=== PATIENT | female | born 1950 | race Caucasian/White ===

== ENCOUNTER → 2018-02-14 11:51 | Outpatient (CLI) | payer MEDICARE, OTHER, SELFPAY ==
--- NOTE | 2018-02-14 | DI.MG.S_ITS ---
BILATERAL DIGITAL SCREENING MAMMOGRAM 3D/2D WITH CAD: 02/14/2018 CLINICAL: Routine screening. Comparison is made to exams dated: 02/01/2017 mammogram, 01/14/2016 mammogram, and 01/03/2015 mammogram - [facility]. The tissue of both breasts is heterogeneously dense. This may lower the sensitivity of mammography. Current study was also evaluated with a Computer Aided Detection (CAD) system. There are clustered calcifications in the left breast middle depth superior region seen on the mediolateral oblique view only. No other significant masses, calcifications, or other findings are seen in either breast. IMPRESSION: INCOMPLETE: NEEDS ADDITIONAL IMAGING EVALUATION The clustered calcifications in the left breast are indeterminate. Spot magnification views are recommended. This exam was interpreted at Station ID: [id number]. NOTE: For mammograms, a report in lay terms will be sent to the patient. Approximately 15% of breast malignancies will not be visualized mammographically. In the management of a palpable breast mass, a negative mammogram must not discourage biopsy of a clinically suspicious lesion. Electronically Signed By: Erin sargent/deejay:02/14/2018 15:06:14 letter sent: Additional Imaging Needed ACR BI-RADS Category 0: Incomplete 3340F
== END ==
PROVIDERS: PCP Physician Assistant; Visit Provider Physician Assistant
DX: Z12.31 Encounter for screening mammogram for malignant neoplasm of breast (principal)
CPT/HCPCS: 77063; 77067

== ENCOUNTER → 2018-02-17 09:17 | Outpatient (CLI) | payer MEDICARE, OTHER, SELFPAY ==
--- NOTE | 2018-02-17 | DI.MG.S_ITS ---
UNILATERAL LEFT DIGITAL DIAGNOSTIC MAMMOGRAM 3D/2D WITH ADDITIONAL VIEWS: 02/17/2018 CLINICAL: Additional evaluation requested from prior study. Comparison is made to exams dated: 02/14/2018 mammogram, 02/01/2017 mammogram, and 01/14/2016 mammogram - [facility]. The tissue of the left breast is heterogeneously dense. This may lower the sensitivity of mammography. The calcifications in the left breast middle depth superior region seen on the mediolateral oblique view only are seen in additional views. No other significant masses or calcifications are seen in the breast. IMPRESSION: BENIGN The calcifications in the left breast are consistent with vascular calcifications and are benign. There is no mammographic evidence of malignancy. A 1 year screening mammogram is recommended. This exam was interpreted at Station ID: [id number]. NOTE: For mammograms, a report in lay terms will be sent to the patient. Approximately 15% of breast malignancies will not be visualized mammographically. In the management of a palpable breast mass, a negative mammogram must not discourage biopsy of a clinically suspicious lesion. Electronically Signed By: Erin Cardoza M.D. lk/:02/17/2018 09:47:34 letter sent: Normal Exam ACR BI-RADS Category 2: Benign Finding(s) 3342F
== END ==
PROVIDERS: PCP Physician Assistant; Visit Provider Physician Assistant
DX: R92.1 Mammographic calcification found on diagnostic imaging of breast (principal)
CPT/HCPCS: 77065; G0279

== ENCOUNTER → 2018-07-14 09:36 | Outpatient (CLI) | payer MEDICARE, OTHER, SELFPAY ==
[2018-07-14 10:22] LABS: Add Manual Diff / Slide Review NO; Basophils Percent Auto 0.6 % (0-2); Eosinophils Percent Auto 1.7 % (2-4); Hematocrit 42.3 % (36-46); Hemoglobin 14.1 g/dL (12.0-16.0); Lymphocytes Percent Auto 28.5 % (25-40); Mean Corpuscular HGB Conc 33.2 % (30-36); Mean Corpuscular Hemoglobin 29.5 PG (26-34); Mean Corpuscular Volume 88.8 fL (80-100); Monocytes Percent Auto 8.1 % (3-14); Neutrophils Absolute Auto 3900 /uL (3000-5900); Neutrophils Percent Auto 61.1 % (50-75); Platelet Count 199 X10^3/uL (150-400); Red Blood Cell Count 4.77 X10^6/uL (4.0-5.2); Red Cell Distribution Width 13.8 % (11.6-14.8); White Blood Cell Count 6.4 X10^3/uL (4.5-11.0)
[2018-07-14 10:52] LABS: Alanine Aminotransferase 31 IU/L (9-52); Albumin 4.5 g/dL (3.5-5.0); Albumin Globulin Ratio 1.5 (1.0-2.8); Alkaline Phosphatase 58 U/L (38-126); Aspartate Aminotransferase 36 IU/L (14-36); BUN Creatinine Ratio 26.7 (6-22); Bilirubin Total 0.4 mg/dL (0.2-1.3); Blood Urea Nitrogen 16 mg/dL (7-17); Calcium 9.2 mg/dL (8.4-10.2); Carbon Dioxide 29 mmol/L (22-32); Chloride 100 mmol/L (98-107); Cholesterol 200 mg/dL (140-199); Estimated Glomerular Filt Rate > 60.0 mL/min (>60); Globulin 3.1 g/dL (1.7-4.1); Glucose 84 mg/dL (80-110); HDL Cholesterol 65 mg/dL (40-60); HEMOLYSIS < 15 (0-50); LDL Cholesterol Calculated 124 mg/dL (<100); Potassium 4.1 mmol/L (3.4-5.1); Sodium 142 mmol/L (137-145); Total Protein 7.6 g/dL (6.3-8.2); Triglycerides 57 mg/dL (35-150)
== END ==
PROVIDERS: PCP Physician Assistant; Visit Provider Physician Assistant
DX: E78.00 Pure hypercholesterolemia, unspecified (principal); I10 Essential (primary) hypertension
CPT/HCPCS: 36415; 80053; 80061; 85025

== ENCOUNTER → 2019-03-13 10:53 | Outpatient (CLI) | payer MEDICARE, OTHER, SELFPAY ==
--- NOTE | 2019-03-13 | DI.MG.S_ITS ---
BILATERAL DIGITAL SCREENING MAMMOGRAM 3D/2D WITH CAD: 03/13/2019 CLINICAL: Routine screening. Comparison is made to exams dated: 02/17/2018 mammogram, 02/14/2018 mammogram, 02/01/2017 mammogram, and 01/14/2016 mammogram - [facility]. The tissue of both breasts is heterogeneously dense. This may lower the sensitivity of mammography. Current study was also evaluated with a Computer Aided Detection (CAD) system. There is possible architectural distortion in the right breast middle depth superior region seen on the mediolateral oblique view only. There are bilateral vascular calcifications. No other significant masses, calcifications, or other findings are seen in either breast. IMPRESSION: INCOMPLETE: NEEDS ADDITIONAL IMAGING EVALUATION There is possible architectural distortion in the right breast middle depth superior region seen on the mediolateral oblique view only is indeterminate. Additional views with possible ultrasound are recommended. This exam was interpreted at Station ID: [id number]. NOTE: For mammograms, a report in lay terms will be sent to the patient. Approximately 15% of breast malignancies will not be visualized mammographically. In the management of a palpable breast mass, a negative mammogram must not discourage biopsy of a clinically suspicious lesion. Electronically Signed By: Devon Broderick M.D. ecl/:03/13/2019 17:40:44 letter sent: Additional Imaging Needed ACR BI-RADS Category 0: Incomplete 3340F
== END ==
PROVIDERS: PCP Physician Assistant; Visit Provider Physician Assistant
DX: Z12.31 Encounter for screening mammogram for malignant neoplasm of breast (principal); R92.8 Other abnormal and inconclusive findings on diagnostic imaging of breast
CPT/HCPCS: 77063; 77067

== ENCOUNTER → 2019-03-28 14:01 | Outpatient (CLI) | payer MEDICARE, OTHER, SELFPAY ==
--- NOTE | 2019-03-28 | DI.MG.S_ITS ---
UNILATERAL RIGHT DIGITAL DIAGNOSTIC MAMMOGRAM 3D/2D WITH ADDITIONAL VIEWS: 03/28/2019 CLINICAL: Additional evaluation requested from prior study. Comparison is made to exams dated: 03/13/2019 mammogram, 02/14/2018 mammogram, and 02/01/2017 mammogram - [facility]. The tissue of right breast is heterogeneously dense. This may lower the sensitivity of mammography. The possible benign architectural distortion in the right breast middle depth superior region seen on the mediolateral oblique view only is not reproduced and presumably represented superimposed breast tissue. This is consistent with summation artifact. No other significant masses or calcifications are seen in the breast. IMPRESSION: The previously described possible asymmetry disperses with additional views and is consistent with summation artifact. There is no mammographic evidence of malignancy. A 1 year screening mammogram is recommended. This exam was interpreted at Station ID: [id number]. NOTE: For mammograms, a report in lay terms will be sent to the patient. Approximately 15% of breast malignancies will not be visualized mammographically. In the management of a palpable breast mass, a negative mammogram must not discourage biopsy of a clinically suspicious lesion. Electronically Signed By: Paul Rojas M.D. aty/:03/28/2019 14:58:22 letter sent: Normal Exam ACR BI-RADS Category 2: Benign Finding(s) 3342F
== END ==
PROVIDERS: PCP Physician Assistant; Visit Provider Physician Assistant
DX: R92.8 Other abnormal and inconclusive findings on diagnostic imaging of breast (principal)
CPT/HCPCS: 77065; G0279

== ENCOUNTER → 2020-03-18 09:30 | Outpatient (CLI) | payer MEDICARE, OTHER, SELFPAY ==
--- NOTE | 2020-03-18 | DI.RAD.S_ITS ---
PROCEDURE: XR DEXA AXIAL SKELETON INDICATIONS: SCREENING COMPARISON: None. FINDINGS: This blank DEXA report has been sent in error by the PACS system. The correct and complete report will be forthcoming in 1-2 days. Thank you for your patience and understanding. Dictated by: Elizabet Fernando MD, PhD on 03/18/2020 at 17:45 Approved by: Elizabet Fernando MD, PhD on 03/18/2020 at 17:45
--- NOTE | 2020-03-18 | DI.MG.S_ITS ---
BILATERAL DIGITAL SCREENING MAMMOGRAM 3D/2D WITH CAD: 03/18/2020 CLINICAL: Routine screening. Comparison is made to exams dated: 03/28/2019 mammogram, 03/13/2019 mammogram, 02/17/2018 mammogram, 02/14/2018 mammogram, and 02/01/2017 mammogram - [facility]. The tissue of both breasts is heterogeneously dense. This may lower the sensitivity of mammography. Current study was also evaluated with a Computer Aided Detection (CAD) system. There is a new 0.5 cm oval high density asymmetry in the right breast middle depth superior region seen on the mediolateral oblique view only 7.6 cm from the nipple. No other significant masses, calcifications, or other findings are seen in either breast. IMPRESSION: INCOMPLETE: NEEDS ADDITIONAL IMAGING EVALUATION New 0.5 cm oval high density asymmetry in the right breast diagnostic mammogram and ultrasound is recommended. This exam was interpreted at Station ID: [id number]. NOTE: For mammograms, a report in lay terms will be sent to the patient. Approximately 15% of breast malignancies will not be visualized mammographically. In the management of a palpable breast mass, a negative mammogram must not discourage biopsy of a clinically suspicious lesion. Electronically Signed By: Lb Metcalf M.D. jr/:03/18/2020 16:26:40 letter sent: Additional Imaging Needed ACR BI-RADS Category 0: Incomplete 3340F
[2020-03-18 10:16] LABS: Add Manual Diff / Slide Review NO; Basophils Absolute Auto 100 /uL (0-100); Basophils Percent Auto 0.6 % (0-2); Eosinophils Absolute Auto 100 /uL (0-450); Eosinophils Percent Auto 1.4 % (2-4); Hematocrit 39.6 % (36-46); Hemoglobin 13.5 g/dL (12.0-16.0); Lymphocytes Absolute Auto 1600 /uL (1100-4500); Lymphocytes Percent Auto 18.8 % (25-40); Mean Corpuscular HGB Conc 34.2 % (30-36); Mean Corpuscular Hemoglobin 30.6 PG (26-34); Mean Corpuscular Volume 89.5 fL (80-100); Monocytes Absolute Auto 600 /uL (0-900); Monocytes Percent Auto 6.9 % (3-14); Neutrophils Absolute Auto 6000 /uL (1500-7000); Neutrophils Percent Auto 72.3 % (50-75); Platelet Count 197 X10^3/uL (150-400); Red Blood Cell Count 4.42 X10^6/uL (4.0-5.2); Red Cell Distribution Width 13.7 % (11.6-14.8); White Blood Cell Count 8.2 X10^3/uL (4.5-11.0)
[2020-03-18 10:42] LABS: Alanine Aminotransferase 21 IU/L (<35); Albumin 4.3 g/dL (3.5-5.0); Albumin Globulin Ratio 1.5 (1.0-2.8); Alkaline Phosphatase 77 U/L (38-126); Aspartate Aminotransferase 33 IU/L (14-36); BUN Creatinine Ratio 30.8 (6-22); Bilirubin Total 0.5 mg/dL (0.2-1.3); Blood Urea Nitrogen 20 mg/dL (7-17); Calcium 9.7 mg/dL (8.4-10.2); Carbon Dioxide 23 mmol/L (22-32); Chloride 103 mmol/L (98-107); Cholesterol 183 mg/dL (140-199); Estimated Glomerular Filt Rate > 60.0 mL/min (>60); Globulin 2.8 g/dL (1.7-4.1); Glucose 83 mg/dL (80-110); HDL Cholesterol 59 mg/dL (40-60); HEMOLYSIS < 15 (0-50); LDL Cholesterol Calculated 111 mg/dL (<100); Potassium 4.5 mmol/L (3.4-5.1); Sodium 137 mmol/L (137-145); Total Protein 7.1 g/dL (6.3-8.2); Triglycerides 64 mg/dL (35-150)
[2020-03-18 10:57] LABS: Vitamin D 25 Hydroxy (D3) 60.9 ng/mL (30.0-100.0)
== END ==
PROVIDERS: PCP Physician Assistant; Referring Provider Physician Assistant; Visit Provider Physician Assistant
DX: Z12.31 Encounter for screening mammogram for malignant neoplasm of breast (principal); M81.0 Age-related osteoporosis without current pathological fracture; Z78.0 Asymptomatic menopausal state; I10 Essential (primary) hypertension; E78.00 Pure hypercholesterolemia, unspecified
CPT/HCPCS: 36415; 77063; 77067; 77080; 80053; 80061; 82306; 85025

== ENCOUNTER → 2020-04-10 09:18 | Outpatient (CLI) | payer MEDICARE, OTHER, SELFPAY ==
--- NOTE | 2020-04-10 09:36 | DI.MG.S_ITS ---
Patient Name: DAVID BONILLA date: 1950 Sex: F Attending Physician: Ana Lilia Indications: Date: 04/10/2020 09:29 At the request of: PAMELA AWAD Procedure: MM special view RT UNILATERAL RIGHT DIGITAL DIAGNOSTIC MAMMOGRAM 3D/2D WITH ADDITIONAL VIEWS: 04/10/2020 CLINICAL: Additional evaluation requested from prior study. Comparison is made to exams dated: 03/18/2020 mammogram, 03/28/2019 mammogram, 03/13/2019 mammogram, and 02/14/2018 mammogram - [facility]. The tissue of right breast is heterogeneously dense. This may lower the sensitivity of mammography. There is a 5 mm oval mass with an obscured margin in the right breast at 9 o'clock middle depth. This is seen in additional views. No other significant masses or calcifications are seen in the breast. IMPRESSION: INCOMPLETE: NEEDS ADDITIONAL IMAGING EVALUATION The 5 mm oval mass in the right breast is indeterminate. An ultrasound is recommended. This exam was interpreted at Station ID: [id number]. NOTE: For mammograms, a report in lay terms will be sent to the patient. Approximately 15% of breast malignancies will not be visualized mammographically. In the management of a palpable breast mass, a negative mammogram must not discourage biopsy of a clinically suspicious lesion. SUMMARY: Targeted ultrasound is recommended for further evaluation and will be scheduled immediately following this exam. Electronically Signed By: Aashish Grande M.D. Continued Report - Page 2 of 2 Patient Name: DAVID BONILLA date: 1950 Sex: F Attending Physician: Ana Lilia Indications: Date: 04/10/2020 09:29 At the request of: PAMELA AWAD Procedure: MM special view RT
--- NOTE | 2020-04-10 10:23 | DI.US.S_ITS ---
Patient Name: DAVID BONILLA date: 1950 Sex: F Attending Physician: Ana Lilia Indications: Date: 04/10/2020 10:24 At the request of: PAMELA AWAD Procedure: US breast RT limited LIMITED ULTRASOUND OF RIGHT BREAST AND AXILLA: 04/10/2020 CLINICAL: Patient returns today to evaluate asymmetry in the right breast. Comparison is made to exams dated: 04/10/2020 mammogram, 03/18/2020 mammogram, 03/28/2019 mammogram, 03/13/2019 mammogram, and 02/14/2018 mammogram - [facility]. Color flow ultrasound of the right breast 9 o'clock, and axilla regions was performed. Brothers scale images of the real-time examination were reviewed. There is a 0.5 cm x 0.3 cm x 0.4 cm round mass with an indistinct and microlobulated margin in the right breast at 9 o'clock middle depth 7 cm from the nipple. This round mass is hypoechoic with posterior acoustic shadowing. This correlates with mammography findings. No significant abnormalities were seen sonographically in the right axilla. IMPRESSION: SUSPICIOUS OF MALIGNANCY The 0.5 cm x 0.3 cm x 0.4 cm round mass in the right breast is at a moderate suspicion for malignancy. An ultrasound guided biopsy is recommended. The findings and recommendations were discussed with the patient in person by Dr. Webber at the time of the exam. This exam was interpreted at Station ID: [id number]. Electronically Signed By: Aashish alexander/deejay:04/10/2020 11:34:57 letter sent: Biopsy Required Ultrasound BI-RADS: 4b Moderate suspicion of malignancy
== END ==
PROVIDERS: PCP Physician Assistant; Referring Provider Physician Assistant; Visit Provider Physician Assistant
DX: R92.8 Other abnormal and inconclusive findings on diagnostic imaging of breast (principal); N63.15 Unspecified lump in the right breast, overlapping quadrants
CPT/HCPCS: 76642; 77065; G0279

== ENCOUNTER → 2020-04-29 13:55 | Outpatient (CLI) | payer MEDICARE, OTHER, SELFPAY ==
--- NOTE | 2020-04-29 | PATH_ITS ---
[facility] Accession Number: [id number] . 01 Material submitted: . breast - RIGHT BREAST 9:00 BIOPSY WITH CLIP . 01 Clinical history: . RIGHT BREAST MASS . 01 Diagnosis: A. Right Breast, 9 o'clock, Biopsy With Clip: Portions of cyst wall with associated hyalinization and stromal fibrosis and proteinaceous secretions. Background with scant breast tissue with focal usual ductal hyperplasia and apocrine metaplasia. Negative for atypia, carcinoma in situ, and malignancy. MRV 05/01/2020 1324 Local . 01 Comment: Clinico-radiographic correlation is necessary. . 01 Electronically signed: . Esha Lo MD, Pathologist NPI- [id number] . 01 Gross description: . Received one formalin-filled container labeled with the patient's name and designated right breast 9 o'clock biopsy with clip. Samples received with plastic filter in container, sample loose in container. The specimen consists of multiple fragments of yellow-lentz soft tissue and blood, which measure 3.5 x 2.0 x 0.5 cm in aggregate. The specimen is filtered and entirely submitted in two cassettes. No collection date or time per container. Possible collection date and time per requisition 04/29/2020 at 1549. Possible total fixation time approximately 30 hours. ([facility]:[id number]) /[facility] 04/30/2020 1847 Local . 01 Pathologist provided ICD-10: N60.19 . 01 CPT . 499693 [facility]formed at: [facility] [address] [place] [address] [id number] MD Sree Ba MD Phone: [phone]
--- NOTE | 2020-04-29 | DI.US.S_ITS ---
ULTRASOUND GUIDED BIOPSY RIGHT BREAST USING VACUUM DEVICE WITH MARKING DEVICE INSERTED AND POST DIGITAL MAMMOGRAPHIC IMAGIN04/29/2020 CLINICAL: Right breast ultrasound biopsy, clip placement imaging. PATIENT CONSENT: Risks (minor bleeding, infection, vasovagal reaction and repeat procedure), benefits and alternatives were explained to the patient and written informed consent was obtained. Correlation is made to exams dated: 04/29/2020 mammogram, 04/10/2020 ultrasound, and 04/10/2020 mammogram - [facility]. An ultrasound guided biopsy using real-time ultrasound was performed for the circumscribed round mass measuring 0.3 cm located in the right breast at 9 o'clock middle depth 7 cm from the nipple. The skin was prepped in the usual manner. Local anesthetic was administered to the access site. A skin sachin was made in the breast. The abnormality was approached from the lateral aspect. A 13 gauge biopsy needle was placed adjacent to the abnormality under ultrasound guidance. Once the needle was documented to be in the correct location, four specimens were obtained using the Mammotome biopsy system. A Vision clip was inserted into the biopsy cavity. Post procedure digital mammographic imaging was obtained. The specimens were sent to the laboratory for pathological analysis. IMPRESSION: ULTRASOUND GUIDED BIOPSY BENIGN Ultrasound guided biopsy of the mass in the right breast at 9 o'clock middle depth was successful. Pathology indicates Portions of cyst wall with associated hyalinization and stromal fibrosis and proteinaceous secretions. Background with win scant breast tissue with focal usual ductal hyperplasia and apocrine metaplasia. Negative for atypia, carcinoma in situ, and malignancy. Pathology results are concordant with imaging findings. Recommend returning to screening mammogram. This exam was interpreted at Station ID: [id number]. Elizabet Kelly M.D. [facility],[place]/:05/06/2020 08:48:49
--- NOTE | 2020-04-29 | DI.MG.S_ITS ---
UNILATERAL RIGHT DIGITAL DIAGNOSTIC MAMMOGRAM POST-NEEDLE BIOPSY: 04/29/2020 CLINICAL: Right breast Mass. Comparison is made to exams dated: 04/10/2020 mammogram, 03/18/2020 mammogram, 03/28/2019 mammogram, and 03/13/2019 mammogram - [facility]. The tissue of right breast is heterogeneously dense. This may lower the sensitivity of mammography. There is a marker clip in the appropriate position in the right breast at 9 o'clock middle depth. This marker clip placement is at the biopsy site. IMPRESSION: POST PROCEDURE MAMMOGRAM FOR MARKER PLACEMENT There was a successful marker clip placement in the right breast middle depth. This exam was interpreted at Station ID: [id number]. NOTE: For mammograms, a report in lay terms will be sent to the patient. Approximately 15% of breast malignancies will not be visualized mammographically. In the management of a palpable breast mass, a negative mammogram must not discourage biopsy of a clinically suspicious lesion. Electronically Signed By: Elizabet vallecillo/deejay:04/30/2020 10:44:14 ACR BI-RADS Category Post-procedure mammogram for marker placement
== END ==
PROVIDERS: PCP Physician Assistant; Referring Provider Physician Assistant; Visit Provider Physician Assistant
DX: N60.01 Solitary cyst of right breast (principal); N60.81 Other benign mammary dysplasias of right breast; N60.31 Fibrosclerosis of right breast
CPT/HCPCS: 19083; 77065

== ENCOUNTER → 2020-10-20 12:46 | Outpatient (CLI) | payer MEDICARE, OTHER, SELFPAY ==
[2020-10-20] MEDS: COVID-19 VACC, Ad26(JANSSEN)/PF 0.5 ML IM (13:00)
== END ==
PROVIDERS: PCP Physician Assistant; Visit Provider Internal Medicine
DX: Z23 Encounter for immunization (principal)
CPT/HCPCS: 0031A; 91303

== ENCOUNTER → 2021-04-04 08:49 | Outpatient (CLI) | payer MEDICARE, OTHER, SELFPAY ==
--- NOTE | 2021-04-04 | DI.MG.S_ITS ---
BILATERAL DIGITAL SCREENING MAMMOGRAM 3D/2D WITH CAD: 04/04/2021 CLINICAL: Routine screening. Comparison is made to exams dated: 03/18/2020 mammogram, 03/13/2019 mammogram, and 02/14/2018 mammogram - [facility]. The tissue of both breasts is heterogeneously dense. This may lower the sensitivity of mammography. Current study was also evaluated with a Computer Aided Detection (CAD) system. No significant masses, calcifications, or other findings are seen in either breast. There has been no significant interval change. IMPRESSION: NEGATIVE There is no mammographic evidence of malignancy. A 1 year screening mammogram is recommended. This exam was interpreted at Station ID: [id number]. NOTE: For mammograms, a report in lay terms will be sent to the patient. Approximately 15% of breast malignancies will not be visualized mammographically. In the management of a palpable breast mass, a negative mammogram must not discourage biopsy of a clinically suspicious lesion. Electronically Signed By: Lb Metcalf M.D., jr/deejay:04/06/2021 09:07:38 letter sent: Normal Exam ACR BI-RADS Category 1: Negative 3341F
== END ==
PROVIDERS: PCP Internal Medicine; Referring Provider Internal Medicine; Visit Provider Internal Medicine
DX: Z12.31 Encounter for screening mammogram for malignant neoplasm of breast (principal)
CPT/HCPCS: 77063; 77067

== ENCOUNTER 2022-04-07 11:33 | Emergency (ER) | payer MEDICARE, OTHER, SELFPAY ==
[2022-04-07] VITALS (17 sets, daily range): BP systolic 112–149; BP diastolic 64–97; PULSE 66–91; RESP 12–49; TEMP 36.7; O2SAT 89–100; BMI 24.2
--- NOTE | 2022-04-07 11:48 | ED_ITS ---
HPI - Syncope General Chief Complaint: Dizziness Stated Complaint: syncope Time Seen by Provider: 04/07/22 11:41 Source: patient and EMS Mode of arrival: EMS Limitations: no limitations History of Present Illness HPI narrative: The patient is a 72-year-old history of hypertension presents today after syncopal episode. She states this morning she noticed some right-sided back pain she thought it was similar to an ulcer she had 20 years ago. 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 She fell and hit her head. EMS arrived and found a blood pressure of 86/60. Not tachycardic she is on Coreg. She denies any nausea or vomiting. She has no abdominal pain or chest pain. She is not sure what happened. She says that she ate injuring this morning however it was not right right-sided back pain which made her little suspicious. She has not had any bleeding. Related Data Home Medications Medication Instructions Recorded Confirmed sertraline 50 mg tablet (Zoloft) 50 mg PO QDAY ##0 07/26/16 Allergies Allergy/AdvReac Type Severity Reaction Status Date / Time Penicillins Allergy Unknown Verified 04/07/22 11:41 Sulfa (Sulfonamide Allergy Unknown Verified 04/07/22 11:41 Antibiotics) Review of Systems Review of Systems Narrative: GENERAL: Denies chills, fatigue, malaise, fever, sweats, travel HEENT: Denies sinus pain, ear pain, sore throat, difficulty swallowing, neck pain RESPIRATORY: Denies dyspnea, cough, wheezing, hemoptysis, sputum. CARDIOVASCULAR: See HPI GASTROINTESTINAL: Denies nausea, vomiting, abdominal pain, diarrhea, constipation, melena. : Denies dysuria, frequency, incontinence, hematuria, urinary retention, flank pain. MUSCULOSKELETAL: Denies weakness, joint pain, or bony pain SKIN: No rash, no erythema, no pruritus NEUROLOGIC: Denies weakness, dizziness, headache, numbness, change in speech, confusion PSYCHIATRIC: No concerning psychosocial issues. 12 point review of systems is negative except for those stated above and HPI Exam Initial Vital Signs Initial Vital Signs: Vital Signs Temperature 98.0 F 04/07/22 11:35 Pulse Rate 66 04/07/22 11:35 Respiratory Rate 18 04/07/22 11:35 Blood Pressure 112/67 04/07/22 11:35 Pulse Oximetry 97 04/07/22 11:35 Oxygen Delivery Method 04/07/22 11:35 GENERAL: Alert pleasant 72-year-old female and in no acute distress. HEENT: Head atraumatic,EOMI, pupils reactive, face symmetric, moist mucous membranes CARDIOVASCULAR: Regular rate and rhythm without murmurs, rubs or gallops. RESPIRATORY: Breath sounds equal bilaterally, no wheezes rales or rhonchi. ABDOMEN: Soft, nontender. Normoactive bowel sounds all 4 quadrants. No gua rding or rebound. EXTREMITIES: Normal range of motion, no clubbing or edema. Neurovascularly intact NEUROLOGICAL: Alert and oriented x4.Normal gait and speech. Cranial nerves II through XII grossly intact. Good [id number], good nifa-iz-[id number], strength equal bilaterally, no dysarthria or aphasia, sensation in tact to soft touch bilaterally, no visual changes, no facial droop SKIN: Warm, dry, no laceration, no petechiae, no rashes or lesions. Course Orders Ordered: ED Orders 04/07/22 11:39 COVID19 -Nasal RAPID/Pre-Proc Stat 04/07/22 11:41 EKG-12 Lead Stat 04/07/22 11:52 CT angio chest abdomen pelvis Stat CT head/brain wo con Stat 04/07/22 11:55 Complete Blood Count AUTO DIFF Stat Comprehensive Metabolic Panel Stat Lactate (Lactic Acid) Stat Lipase Stat Magnesium Stat Troponin & CK Cardiac Panel Stat 04/07/22 13:55 US abdomen limited Stat 04/07/22 14:50 MRCP [MR abdomen wo con] Stat Discontinued Medications Meclizine HCl (Meclizine Hcl 12.5 Mg Tablet) 25 mg PO NOW ONE Stop: 04/07/22 13:08 Last Admin: 04/07/22 13:39 Dose: 25 mg Documented By: ADK Vital Signs Vital signs: Vital Signs - 8 hr 04/07/22 11:35 04/07/22 11:38 04/07/22 11:38 Temperature 98.0 F Pulse Rate 66 68 Respiratory Rate 18 Blood Pressure 112/67 112/67 Pulse Oximetry 97 97 Oxygen Delivery Method Room Air 04/07/22 11:41 04/07/22 11:41 04/07/22 12:00 Temperature Pulse Rate 66 Respiratory Rate 22 Blood Pressure 116/64 117/72 Pulse Oximetry 96 Oxygen Delivery Method 04/07/22 12:00 08/31/22 12:20 04/07/22 12:20 Temperature Pulse Rate 71 77 Respiratory Rate 16 12 Blood Pressure 127/73 Pulse Oximetry 95 97 Oxygen Delivery Method 04/07/22 12:30 04/07/22 12:30 04/07/22 13:00 Temperature Pulse Rate 81 Respiratory Rate 18 Blood Pressure 130/79 119/73 Pulse Oximetry 100 Oxygen Delivery Method 04/07/22 13:00 04/07/22 13:07 04/07/22 13:07 Temperature Pulse Rate 80 82 Respiratory Rate 26 H 19 Blood Pressure 143/81 H Pulse Oximetry 99 96 Oxygen Delivery Method 04/07/22 13:30 04/07/22 13:30 04/07/22 14:02 Temperature Pulse Rate 76 85 Respiratory Rate 16 Blood Pressure 138/86 Pulse Oximetry 97 89 L Oxygen Delivery Method 04/07/22 14:14 04/07/22 14:14 04/07/22 14:30 Temperature Pulse Rate 77 Respiratory Rate 17 Blood Pressure 138/77 135/83 Pulse Oximetry 98 Oxygen Delivery Method 04/07/22 14:30 04/07/22 15:35 04/07/22 15:38 Temperature Pulse Rate 80 84 Respiratory Rate 49 H Blood Pressure 139/85 Pulse Oximetry 97 96 Oxygen Delivery Method 04/07/22 15:38 04/07/22 16:00 04/07/22 16:30 Temperature Pulse Rate 88 82 84 Respiratory Rate Blood Pressure Pulse Oximetry 96 97 97 Oxygen Delivery Method 04/07/22 17:00 04/07/22 17:00 Temperature Pulse Rate 91 H Respiratory Rate Blood Pressure 149/97 H Pulse Oximetry 89 L Oxygen Delivery Method MDM - Syncope Lab Data Result diagrams: 04/07/22 11:55 04/07/22 11:55 Labs: Lab Results 04/07/22 04/07/22 04/07/22 Range/Units 11:39 11:55 11:55 WBC 9.5 (4.5-11.0) X10^3/uL RBC 3.78 L (4.0-5.2) X10^6/uL Hgb 11.6 L (12.0-16.0) g/dL Hct 34.1 L (36-46) % MCV 90.2 (80-100) fL MCH 30.8 (26-34) PG MCHC 34.1 (30-36) % RDW 13.8 (11.6-14.8) % Plt Count 191 (150-400) X10^3/uL Neut % (Auto) 68.8 (50-75) % Lymph % (Auto) 20.7 L (25-40) % Collin % (Auto) 6.4 (3-14) % Eos % (Auto) 3.5 (2-4) % Baso % (Auto) 0.6 (0-2) % Neut # (Auto) 6500 (8990-0395) /uL Lymph # (Auto) 2000 (2455-7068) /uL Collin # (Auto) 600 (0-900) /uL Eos # (Auto) 300 (0-450) /uL Baso # (Auto) 100 (0-100) /uL Sodium 136 L (137-145) mmol/L Potassium 3.9 (3.4-5.1) mmol/L Chloride 105 (98-107) mmol/L Carbon Dioxide 23 (22-32) mmol/L BUN 21 H (7-17) mg/dL Creatinine 0.87 (0.52-1.04) mg/dL Estimated GFR > 60 (>60) mL/min BUN/Creatinine Ratio 24.1 H (6-22) Glucose 80 (80-110) mg/dL Lactate (0.7-2.1) mmol/L Calcium 8.2 L (8.4-10.2) mg/dL Magnesium 2.1 (1.6-2.3) mg/dL Total Bilirubin 0.3 (0.2-1.3) mg/dL AST 29 (14-36) IU/L ALT 18 (<35) IU/L Alkaline Phosphatase 58 (38-126) U/L Total Creatine Kinase 24 L (30-135) U/L CK-MB (CK-2) TNP CK-MB (CK-2) Rel Index TNP Troponin I < 0.012 (0.01-0.034) ng/mL Total Protein 6.3 (6.3-8.2) g/dL Albumin 3.4 L (3.5-5.0) g/dL Globulin 2.9 (1.7-4.1) g/dL Albumin/Globulin Ratio 1.2 (1.0-2.8) Lipase 401 H (23-300) U/L SARS-CoV-2 (PCR) Negative (Negative) 04/07/22 04/07/22 Range/Units 11:55 14:45 WBC (4.5-11.0) X10^3/uL RBC (4.0-5.2) X10^6/uL Hgb (12.0-16.0) g/dL Hct (36-46) % MCV (80-100) fL MCH (26-34) PG MCHC (30-36) % RDW (11.6-14.8) % Plt Count (150-400) X10^3/uL Neut % (Auto) (50-75) % Lymph % (Auto) (25-40) % Collin % (Auto) (3-14) % Eos % (Auto) (2-4) % Baso % (Auto) (0-2) % Neut # (Auto) (3111-7994) /uL Lymph # (Auto) (6817-2157) /uL Collin # (Auto) (0-900) /uL Eos # (Auto) (0-450) /uL Baso # (Auto) (0-100) /uL Sodium (137-145) mmol/L Potassium (3.4-5.1) mmol/L Chloride (98-107) mmol/L Carbon Dioxide (22-32) mmol/L BUN (7-17) mg/dL Creatinine (0.52-1.04) mg/dL Estimated GFR (>60) mL/min BUN/Creatinine Ratio (6-22) Glucose (80-110) mg/dL Lactate 2.3 H 0.8 (0.7-2.1) mmol/L Calcium (8.4-10.2) mg/dL Magnesium (1.6-2.3) mg/dL Total Bilirubin (0.2-1.3) mg/dL AST (14-36) IU/L ALT (<35) IU/L Alkaline Phosphatase (38-126) U/L Total Creatine Kinase (30-135) U/L CK-MB (CK-2) CK-MB (CK-2) Rel Index Troponin I (0.01-0.034) ng/mL Total Protein (6.3-8.2) g/dL Albumin (3.5-5.0) g/dL Globulin (1.7-4.1) g/dL Albumin/Globulin Ratio (1.0-2.8) Lipase (23-300) U/L SARS-CoV-2 (PCR) (Negative) Imaging Data CT scan - chest: Radiologist's Impression: CT Scan Report Signed Patient: Shayy Craig MR#: [id number] : 1950 Acct:[id number] Age/Sex: 72 / F Date of Service: 04/07/22 Loc: ED Accession Number: [id number] ?? Procedure: CT angio chest abdomen pelvis Ordering Provider: Lizeth Cowart D.O. PROCEDURE:? CT ANGIO CHEST ABDOMEN PELVIS ? INDICATIONS:? syncope with hypotension, back pain ? TECHNIQUE:? Precontrast 5 mm thick sections acquired from the lung apices to the iliac crests.? After the administration of intravenous contrast, 2.5 mm thick sections again acquired from the lung apices to the iliac crests.? Maximum intensity projection (MIP) oblique sagittal and coronal reformats were then acquired.? For radiation dose reduction, the following was used:? automated exposure control.? ? COMPARISON:? None. ? FINDINGS: ? Chest: ? Cardiovascular:? Ascending fusiform thoracic aortic aneurysm measures 4 cm.? No evidence of dissection.? Dense atherosclerotic vascular calcification noted in the coronary arteries.? Heart size normal.? Both pulmonary arteries are unremarkable without filling defects to suggest pulmonary embolism ? Lungs and pleural spaces:? The lung parish are clear without nodule, infiltrate or interstitial prominence.? Pleural spaces show no effusion or pneumothorax. ? Lymph nodes:? No mediastinal, hilar or axillary adenopathy. ? Mediastinum:? Unremarkable.? No hiatal hernia.? Thyroid within normal limits. ? Chest Wall and Bones:? Unremarkable.? No acute fracture. ? Abdomen and Pelvis: ? Liver:? Normal in size and attenuation. No contour deformity present. Biliary system:? No calcified cholelithiasis or pericholecystic inflammation.? No intrahepatic bile duct dilatation.? There is prominent distal CBD measuring 1 cm at the head of the pancreas. ? Pancreas:? Unremarkable without mass or inflammation evident. ? Spleen:? Normal in size and density. ? Adrenals:? Normal morphology and density. ? Reproductive system:? Unremarkable as visualized. ? Urinary system:? Normal renal size and attenuation. No renal calculi, hydronephrosis, or solid mass present.? Urinary bladder unremarkable. ? Gastrointestinal system:? The bowel is unremarkable with no evidence of bowel obstruction or inflammation. The stomach appears unremarkable.? ? Appendix:? No findings to suggest acute appendicitis. ? Lymph nodes:? No mesenteric or retroperitoneal adenopathy. ? Peritoneal spaces: ? No free air. No free fluid.? ? Vasculature:? The IVC, aorta and iliac vasculature are unremarkable. ? Abdominal wall:? Abdominal wall intact without evidence of ventral or inguinal hernias. ? Musculoskeletal:? Normal bone mineralization.? Degenerative disc disease and arthropathy noted in lower lumbar spine.? No acute fractures.? ? IMPRESSION: ? 1.? Fusiform ascending thoracic aortic aneurysm measures 4 cm.? No dissection.? Abdominal aorta unremarkable without aneurysm or dissection. ? 2. Incidental prominent distal CBD measures 1 cm.? Consider follow-up MRCP to evaluate for distal CBD stone ? Approved by: Figueroa Bosch M.D. on 04/07/2022 at 11:59? CT scan - head: Radiologist's Impression: Signed Patient: Shayy Craig MR#: [id number] : 1950 Acct:[id number] Age/Sex: 72 / F Date of Service: 04/07/22 Loc: ED Accession Number: [id number] ?? Procedure: CT head/brain wo con Ordering Provider: Lizeth Cowart D.O. PROCEDURE:? CT HEAD/BRAIN WO CON ? INDICATIONS:? syncope ? TECHNIQUE:? Noncontrast 5 mm thick angled axial sections acquired from the foramen magnum to the vertex, with coronal and sagittal reformats.? For radiation dose reduction, the following was used:? automated exposure control, adjustment of mA and/or kV according to patient size.? ? COMPARISON:? None. ? FINDINGS:? Image quality:? Excellent.? ? CSF spaces:? Basal cisterns are patent.? No extra-axial fluid collections.? Ventricles are normal in size and shape.? ? Brain:? No midline shift.? No intracranial masses or hemorrhage.? Brothers-white mat ter interface is normal.? ? Skull and face:? Calvarium and visualized facial bones are intact, without suspicious lesions.? ? Sinuses:? Visualized sinuses and mastoids are clear.? ? IMPRESSION:? Atrophy and chronic ischemic change without acute hemorrhage or mass effect ? ? ? Approved by: Figueroa Bosch M.D. on 04/07/2022 at 11:50? US - abdomen: Radiologist's Impression: Signed Patient: Shayy Craig MR#: [id number] : 1950 Acct:[id number] Age/Sex: 72 / F Date of Service: 04/07/22 Loc: ED Accession Number: [id number] ?? Procedure: US abdomen limited Ordering Provider: Lizeth Cowart D.O. PROCEDURE: US ABDOMEN LIMITED ? INDICATIONS:? DILATED COMMON BILE DUCT ? TECHNIQUE:? Real-time focused scanning was performed of the abdomen, with image docu mentation.? ? COMPARISON:? [facility], CT, CT ANGIO CHEST ABDOMEN PELVIS, 04/07/2022, 12:09. ? FINDINGS:? The liver is normal in size and demonstrates no suspicious lesions. ? Gallbladder is prominent in size measuring 7.3 x 3.9 x 2.2 cm. No findings of gallstones or sludge are seen.? The gallbladder wall is not thickened, measuring 3 mm or less.? No specific pericholecystic fluid is seen.? The sonographic Kraft sign is negative. ? The common bile duct is mildly dilated at 8 mm. ? No significant pancreatic abnormality is seen on these images.? ? No free fluid is seen.? ? ? IMPRESSION:? Mildly dilated common bile duct, 8 mm. ? Prominent gallbladder size, without additional sonographic signs of cholecystitis. ? ? Dictated by: Robinson Goins M.D. on 04/07/2022 at 13:39? MRCP: Radiologist's Impression: Shayy Craig MR#: [id number] : 1950 Acct:[id number] Age/Sex: 72 / F Date of Service: 04/07/22 Loc: ED Accession Number: [id number] ?? Procedure: MR abdomen wo con Ordering Provider: Lizeth Cowart D.O. PROCEDURE:? MR ABDOMEN WO CON ? INDICATIONS:? dilated CBD ? TECHNIQUE:? Coronal HASTE through the abdomen, axial 2-D FLASH in- and [id number], and breath-hold T2 FSE with fat saturation through the biliary system and pancreas.? Oblique cor onal and axial thin-slice HASTE, radial thick-slab HASTE centered on the extrahepatic bile ducts.? ? ? COMPARISON:? [facility], US, US ABDOMEN LIMITED, 04/07/2022, 14:14.? [facility], CT, CT ANGIO CHEST ABDOMEN PELVIS, 04/07/2022, 12:09. ? FINDINGS:? Image quality:? Excellent.? ? Pancreas and biliary system:? Mild intrahepatic biliary ductal dilatation.? Left intrahepatic duct measures 0.5 cm. The CBD measures 0.8 cm, (6/).? No filling defect demonstrated.? Main pancreatic duct is not dilated.? Suspect pancreatic divisum, (02/23).? Mildly prominent curvilinear duct in the head of the pancreas or side branch cyst measuring 0.3 cm, (12/30).? Gallbladder is not significantly distended.? No gallstones.? ? Other solid organs:? Liver is normal in size.? A few small T2 hyperintense cysts.? Spleen is normal in size.? No adrenal nodules.? Both kidneys are normal in size, without hydronephrosis.? ? Nodes and vessels:? No retroperitoneal or mesenteric adenopathy by size criteria.? Aorta and inferior vena cava are normal in size.? ? Bowel and peritoneum:? Unenhanced bowel loops are normal in caliber.? No free fluid.? ? Lung bases:? No basal pleural effusions.? Heart size is normal.? ? Bones and soft tissues:? No ventral hernias.? Bone marrow is of normal overall signal.? ? IMPRESSION:? 1. Mild biliary ductal dilatation.? No choledocholithiasis demonstrated. ? 2. Suspect pancreatic divisum. ? 3. Small side branch cyst or minimally prominent duct in the head of the pancreas.? The main pancreatic duct is not dilated. ? ? Dictated by: Antwon Kelly M.D. on 04/07/2022 at 16:13 ? ? Approved by: Antwon Kelly M.D. on 04/07/2022 at 16: ECG Data Interpretation: Normal sinus rhythm rate 65 WV interval 168 QRS [address] changes no T- wave inversion MDM Narrative Medical decision making narrative: Patient is single episode with right-sided back pain. She instantly found to have an ascending aortic aneurysm at 4 cm. Unlikely to be the cause of her syncopal episode. She is also known to have a dilated common bile duct of both on CT and ultrasound. She really has no right upper quadrant pain no elevated liver enzymes or bilirubin. MRCP is done and actually does not show any choledocholithiasis. This is likely also an incidental finding. Patient probably had vasovagal like reaction. She has been [facility] without any difficulty. Blood pressure has resolved. Discharge Plan Departure Patient Disposition: Home Clinical Impression: Orthostatic hypotension, Thoracic ascending aortic aneurysm Instructions: Aortic Aneurysm, Orthostatic Hypotension Activity Restrictions/Additional Instructions: *You have been diagnosed with orthostatic hypotension, ascending thoracic aneurysm measures 4 cm *What to do: At this time he likely or little dehydrated. You are found to have a thoracic aneurysm which needs to be followed. At this time no emergent repair needs to be done. Is also unlikely the cause of year syncopal episode today. You were also found to have a dilated common bile duct, fortunately there is no stone at this time. Please increase your fluid intake. *Continue to take medications as directed Call [place] [facility] at [phone] for follow-up for aneurysm. He will likely need an official referral from your PCP. *Follow up with your primary care provider in 2-3 days or call [phone] [and follow up with ortho, urology etc] *Return to ER if you should have [such as] [or] any new, worsening or concerning symptoms Prescriptions: No Action sertraline [Zoloft] 50 MG tablet 50 mg PO QDAY Qty: 0 Referrals: Jose Peña MD [Primary Care Provider] - Visit Report Forms: Patient Portal/API
--- NOTE | 2022-04-07 11:52 | DI.CT.S_ITS ---
PROCEDURE: CT ANGIO CHEST ABDOMEN PELVIS INDICATIONS: syncope with hypotension, back pain TECHNIQUE: Precontrast 5 mm thick sections acquired from the lung apices to the iliac crests. After the administration of intravenous contrast, 2.5 mm thick sections again acquired from the lung apices to the iliac crests. Maximum intensity projection (MIP) oblique sagittal and coronal reformats were then acquired. For radiation dose reduction, the following was used: automated exposure control. COMPARISON: None. FINDINGS: Chest: Cardiovascular: Ascending fusiform thoracic aortic aneurysm measures 4 cm. No evidence of dissection. Dense atherosclerotic vascular calcification noted in the coronary arteries. Heart size normal. Both pulmonary arteries are unremarkable without filling defects to suggest pulmonary embolism Lungs and pleural spaces: The lung parish are clear without nodule, infiltrate or interstitial prominence. Pleural spaces show no effusion or pneumothorax. Lymph nodes: No mediastinal, hilar or axillary adenopathy. Mediastinum: Unremarkable. No hiatal hernia. Thyroid within normal limits. Chest Wall and Bones: Unremarkable. No acute fracture. Abdomen and Pelvis: Liver: Normal in size and attenuation. No contour deformity present. Biliary system: No calcified cholelithiasis or pericholecystic inflammation. No intrahepatic bile duct dilatation. There is prominent distal CBD measuring 1 cm at the head of the pancreas. Pancreas: Unremarkable without mass or inflammation evident. Spleen: Normal in size and density. Adrenals: Normal morphology and density. Reproductive system: Unremarkable as visualized. Urinary system: Normal renal size and attenuation. No renal calculi, hydronephrosis, or solid mass present. Urinary bladder unremarkable. Gastrointestinal system: The bowel is unremarkable with no evidence of bowel obstruction or inflammation. The stomach appears unremarkable. Appendix: No findings to suggest acute appendicitis. Lymph nodes: No mesenteric or retroperitoneal adenopathy. Peritoneal spaces: No free air. No free fluid. Vasculature: The IVC, aorta and iliac vasculature are unremarkable. Abdominal wall: Abdominal wall intact without evidence of ventral or inguinal hernias. Musculoskeletal: Normal bone mineralization. Degenerative disc disease and arthropathy noted in lower lumbar spine. No acute fractures. IMPRESSION: 1. Fusiform ascending thoracic aortic aneurysm measures 4 cm. No dissection. Abdominal aorta unremarkable without aneurysm or dissection. 2. Incidental prominent distal CBD measures 1 cm. Consider follow-up MRCP to evaluate for distal CBD stone Approved by: Figueroa Bosch M.D. on 04/07/2022 at 11:59
--- NOTE | 2022-04-07 11:52 | DI.CT.S_ITS ---
PROCEDURE: CT HEAD/BRAIN WO CON INDICATIONS: syncope TECHNIQUE: Noncontrast 5 mm thick angled axial sections acquired from the foramen magnum to the vertex, with coronal and sagittal reformats. For radiation dose reduction, the following was used: automated exposure control, adjustment of mA and/or kV according to patient size. COMPARISON: None. FINDINGS: Image quality: Excellent. CSF spaces: Basal cisterns are patent. No extra-axial fluid collections. Ventricles are normal in size and shape. Brain: No midline shift. No intracranial masses or hemorrhage. Brothers-white matter interface is normal. Skull and face: Calvarium and visualized facial bones are intact, without suspicious lesions. Sinuses: Visualized sinuses and mastoids are clear. IMPRESSION: Atrophy and chronic ischemic change without acute hemorrhage or mass effect Approved by: Figueroa Bosch M.D. on 04/07/2022 at 11:50
[2022-04-07 12:02] LABS: Add Manual Diff / Slide Review NO; Basophils Absolute Auto 100 /uL (0-100); Basophils Percent Auto 0.6 % (0-2); Eosinophils Absolute Auto 300 /uL (0-450); Eosinophils Percent Auto 3.5 % (2-4); Hematocrit 34.1 % (36-46); Hemoglobin 11.6 g/dL (12.0-16.0); Lymphocytes Absolute Auto 2000 /uL (1100-4500); Lymphocytes Percent Auto 20.7 % (25-40); Mean Corpuscular HGB Conc 34.1 % (30-36); Mean Corpuscular Hemoglobin 30.8 PG (26-34); Mean Corpuscular Volume 90.2 fL (80-100); Monocytes Absolute Auto 600 /uL (0-900); Monocytes Percent Auto 6.4 % (3-14); Neutrophils Absolute Auto 6500 /uL (1500-7000); Neutrophils Percent Auto 68.8 % (50-75); Platelet Count 191 X10^3/uL (150-400); Red Blood Cell Count 3.78 X10^6/uL (4.0-5.2); Red Cell Distribution Width 13.8 % (11.6-14.8); White Blood Cell Count 9.5 X10^3/uL (4.5-11.0)
[2022-04-07 12:04] LABS: COVID19 -Nasal RAPID Negative (Negative)
[2022-04-07 13:18] LABS: Alanine Aminotransferase 18 IU/L (<35); Albumin 3.4 g/dL (3.5-5.0); Albumin Globulin Ratio 1.2 (1.0-2.8); Alkaline Phosphatase 58 U/L (38-126); Aspartate Aminotransferase 29 IU/L (14-36); BUN Creatinine Ratio 24.1 (6-22); Bilirubin Total 0.3 mg/dL (0.2-1.3); Blood Urea Nitrogen 21 mg/dL (7-17); Calcium 8.2 mg/dL (8.4-10.2); Carbon Dioxide 23 mmol/L (22-32); Chloride 105 mmol/L (98-107); Creatine Kinase 24 U/L (30-135); Estimated Glomerular Filt Rate > 60 mL/min (>60); Globulin 2.9 g/dL (1.7-4.1); Glucose 80 mg/dL (80-110); HEMOLYSIS < 15 (0-50); Lipase 401 U/L (23-300); Magnesium 2.1 mg/dL (1.6-2.3); Potassium 3.9 mmol/L (3.4-5.1); Sodium 136 mmol/L (137-145); Total Protein 6.3 g/dL (6.3-8.2)
[2022-04-07 13:20] LABS: Lactate (Lactic Acid) 2.3 mmol/L (0.7-2.1)
[2022-04-07 13:29] LABS: Troponin I < 0.012 ng/mL (0.01-0.034)
[2022-04-07] MEDS: MECLIZINE HCL 12.5 MG TABLET 25 MG PO (13:39)
--- NOTE | 2022-04-07 13:55 | DI.US.S_ITS ---
PROCEDURE: US ABDOMEN LIMITED INDICATIONS: DILATED COMMON BILE DUCT TECHNIQUE: Real-time focused scanning was performed of the abdomen, with image documentation. COMPARISON: [facility], CT, CT ANGIO CHEST ABDOMEN PELVIS, 04/07/2022, 12:09. FINDINGS: The liver is normal in size and demonstrates no suspicious lesions. Gallbladder is prominent in size measuring 7.3 x 3.9 x 2.2 cm. No findings of gallstones or sludge are seen. The gallbladder wall is not thickened, measuring 3 mm or less. No specific pericholecystic fluid is seen. The sonographic Kraft sign is negative. The common bile duct is mildly dilated at 8 mm. No significant pancreatic abnormality is seen on these images. No free fluid is seen. IMPRESSION: Mildly dilated common bile duct, 8 mm. Prominent gallbladder size, without additional sonographic signs of cholecystitis. Dictated by: Robinson Goins M.D. on 04/07/2022 at 13:39 Approved by: Robinson Goins M.D. on 04/07/2022 at 13:41
[2022-04-07 13:58] LABS: Reflexed Lactate in 2 Hours Y
--- NOTE | 2022-04-07 14:50 | DI.MRI.S_ITS ---
PROCEDURE: MR ABDOMEN WO CON INDICATIONS: dilated CBD TECHNIQUE: Coronal HASTE through the abdomen, axial 2-D FLASH in- and [id number], and breath-hold T2 FSE with fat saturation through the biliary system and pancreas. Oblique coronal and axial thin-slice HASTE, radial thick-slab HASTE centered on the extrahepatic bile ducts. COMPARISON: [facility], US, US ABDOMEN LIMITED, 04/07/2022, 14:14. [facility], CT, CT ANGIO CHEST ABDOMEN PELVIS, 04/07/2022, 12:09. FINDINGS: Image quality: Excellent. Pancreas and biliary system: Mild intrahepatic biliary ductal dilatation. Left intrahepatic duct measures 0.5 cm. The CBD measures 0.8 cm, (6/9). No filling defect demonstrated. Main pancreatic duct is not dilated. Suspect pancreatic divisum, (7/19). Mildly prominent curvilinear duct in the head of the pancreas or side branch cyst measuring 0.3 cm, (5/25). Gallbladder is not significantly distended. No gallstones. Other solid organs: Liver is normal in size. A few small T2 hyperintense cysts. Spleen is normal in size. No adrenal nodules. Both kidneys are normal in size, without hydronephrosis. Nodes and vessels: No retroperitoneal or mesenteric adenopathy by size criteria. Aorta and inferior vena cava are normal in size. Bowel and peritoneum: Unenhanced bowel loops are normal in caliber. No free fluid. Lung bases: No basal pleural effusions. Heart size is normal. Bones and soft tissues: No ventral hernias. Bone marrow is of normal overall signal. IMPRESSION: 1. Mild biliary ductal dilatation. No choledocholithiasis demonstrated. 2. Suspect pancreatic divisum. 3. Small side branch cyst or minimally prominent duct in the head of the pancreas. The main pancreatic duct is not dilated. Dictated by: Antwon Kelly M.D. on 04/07/2022 at 16:13 Approved by: Antwon Kelly M.D. on 04/07/2022 at 16:22
[2022-04-07 15:02] LABS: Lactate 2HR (Lactic Acid Rflx) 0.8 mmol/L (0.7-2.1)
== END 2022-04-07 17:07 | disposition home or self-care (01) ==
PROVIDERS: Emergency Provider Emergency Medicine; PCP Internal Medicine
DX: I95.1 Orthostatic hypotension (principal); I71.2 Thoracic aortic aneurysm, without rupture; Z20.822 Contact with and (suspected) exposure to COVID-19; M54.2 Cervicalgia; M54.9 Dorsalgia, unspecified; K82.8 Other specified diseases of gallbladder
CPT/HCPCS: 36415; 70450; 71275; 74174; 74181; 76705; 80053; 82550; 83605; 83690; 83735; 84484; 85025; 87635; 93005; 99284; C9803; Q9967

== ENCOUNTER → 2022-06-11 16:36 | Outpatient (CLI) | payer MEDICARE, OTHER, SELFPAY ==
--- NOTE | 2022-06-11 16:37 | DI.MG.S_ITS ---
BILATERAL DIGITAL SCREENING MAMMOGRAM 3D/2D WITH CAD: 06/11/2022 CLINICAL: Routine screening. Comparison is made to exams dated: 04/04/2021 mammogram, 03/18/2020 mammogram, 03/13/2019 mammogram, and 04/10/2020 mammogram - [facility]. Both breasts are heterogeneously dense, which may obscure small masses (category c / 51-75% glandular tissue). Current study was also evaluated with a Computer Aided Detection (CAD) system. There is a biopsy clip in the right breast. No significant masses, calcifications, or other findings are seen in either breast. There has been no significant interval change. IMPRESSION: NEGATIVE There is no mammographic evidence of malignancy. A 1 year screening mammogram is recommended. Based on the Tyrer Cuzick model (a risk assessment model) the patient's lifetime risk is 4.8% and her 10 year risk is 4.3%. According to the ACR, ACS, and NCCN guidelines, an annual breast MRI exam along with mammogram is recommended if the patient's lifetime risk is 20% or greater. This exam was interpreted at Station ID: [id number]. NOTE: For mammograms, a report in lay terms will be sent to the patient. Approximately 15% of breast malignancies will not be visualized mammographically. In the management of a palpable breast mass, a negative mammogram must not discourage biopsy of a clinically suspicious lesion. Electronically Signed By: Aashish alexander/deejay:06/11/2022 16:53:27 letter sent: Normal Exam ACR BI-RADS Category 1: Negative 3341F
== END ==
PROVIDERS: PCP Internal Medicine; Referring Provider Internal Medicine; Visit Provider Internal Medicine
DX: Z12.31 Encounter for screening mammogram for malignant neoplasm of breast (principal)
CPT/HCPCS: 77063; 77067

== ENCOUNTER 2022-07-18 03:50 | Emergency (ER) | payer MEDICARE, OTHER, SELFPAY ==
[2022-07-18 03:54] VITALS: BP 124/79; PULSE 82; RESP 18; TEMP 36.2; O2SAT 98; BMI 22.2
--- NOTE | 2022-07-18 04:10 | ED.EPISTAXIS ---
HPI - Epistaxis General Chief complaint: Nasal Problem Stated complaint: NOSE BLEEDx1 HOUR Time Seen by Provider: 07/18/22 03:56 Source: patient Mode of arrival: Ambulatory History of Present Illness HPI Narrative: [age] year old female nonsmoker without any significant medical history presents with her in the chief complaint of a harsh sounding cough with nasal congestion, sneezing and the occasional sore throat for the past week. Tonight she was coughing and had a sudden onset of bleeding from her left nostril. She states it was bleeding a significant amount until she put a clamp on it prior to coming in. She denies any blood going down the back of her throat. She denies any trauma or injury. She is not dizzy nor weak or lightheaded. She denies headache or blurred vision and takes no blood thinners. She denies any chest pain but has a harsh cough that is occasionally productive of yellowish sputum. She denies nausea, vomiting or diarrhea. Related Data Home Medications Medication Instructions Recorded Confirmed sertraline 50 mg tablet (Zoloft) 50 mg PO QDAY ##0 07/26/16 Previous Rx's Medication Instructions Recorded benzonatate 200 mg capsule 200 mg PO BID PRN cough #20 caps 07/18/22 codeine 10 mg-guaifenesin 100 mg/5 5 ml PO Q4-6H PRN cough #237 mL 07/18/22 mL oral liquid doxycycline hyclate 100 mg tablet 100 mg PO BID #20 tabs 07/18/22 ondansetron 4 mg disintegrating 4 mg PO TID-QID PRN nausea and 07/18/22 tablet vomiting #10 tabs Allergies Allergy/AdvReac Type Severity Reaction Status Date / Time Penicillins Allergy Unknown Verified 04/07/22 11:41 Sulfa (Sulfonamide Allergy Unknown Verified 04/07/22 11:41 Antibiotics) Review of Systems Review of Systems Narrative: GENERAL: See HPI HEENT: See HPI RESPIRATORY: See HPI CARDIOVASCULAR: Denies chest pain, palpitations, orthopnea, edema, GASTROINTESTINAL: See HPI : Denies dysuria, frequency, incontinence, hematuria, urinary retention. MUSCULOSKELETAL: denies weakness, joint pain, or bony pain SKIN: Denies rash, skin lesions, or other NEUROLOGIC: Denies weakness, headache, numbness, change in speech, confusion, seizures, incoordination. PSYCHIATRIC: No concerning psychosocial issues. 12 point review of systems is negative except for those stated above Patient History Social History Smoking Status: Never smoker Smoking Status: Never smoker alcohol intake frequency: 0-2 drinks per day Substance Use Type: does not use Exam Narrative Exam Narrative: GENERAL: [72] year old patient appears stated age. Well-developed patient, in mild distress. Appears to feel unwell, no significant work of breathing but the occasional harsh cough is noted HEAD: Atraumatic. Normocephalic. EYES: Pupils equal round and reactive. Extraocular motions intact. No scleral icterus. No injection or drainage. ENT: Nasal clamp in place, fresh clots noted, when removed fresh clots noted in left naris, no postpharyngeal bleeding. Throat without erythema, tonsillar hypertrophy or exudate. Airway patent. NECK: Trachea midline. Non tender CARDIOVASCULAR: Regular rate and rhythm without murmurs, gallops, or rubs. RESPIRATORY: Harsh breath sounds bilaterally, no wheeze, rale or rhonchi GASTROINTESTINAL: Abdomen soft, non-tender, nondistended. EXTREMITIES: No edema or joint tenderness. BACK: Nontender without deformity or crepitance. No flank tenderness. NEURO: AOx3. SKIN: No rash or erythema of visible areas Initial Vital Signs Initial Vital Signs: Vital Signs Temperature 97.2 F L 07/18/22 03:54 Pulse Rate 82 07/18/22 03:54 Respiratory Rate 18 07/18/22 03:54 Blood Pressure 124/79 07/18/22 03:54 Pulse Oximetry 98 07/18/22 03:54 Oxygen Delivery Method 07/18/22 03:54 Procedures Epistaxis Control Time Out Performed: Yes Nostril: left Nose Prepped With: oxymetazoline Direct Inspection: yes Clots Removed by: blowing nose, suction and manually Cautery Used: silver nitrate Patient Tolerated Procedure: well Course Orders Ordered: ED Orders 07/18/22 04:29 Chest [XR chest 2V] Stat 07/18/22 04:30 Covid-19 + FLU A/B + RSV - PCR Stat Discontinued Medications Acetaminophen/Codeine Phosphate (Acetaminophen/Codeine Soln 5 Ml Solution) 5 ml PO NOW ONE Stop: 07/18/22 06:30 Ondansetron HCl (Ondansetron 4 Mg Odt Prepack) 1 bottle MISC SEEINSTR ONE Stop: 07/18/22 06:30 Oxymetazoline HCl (Oxymetazoline Nasal Kimball 15 Ml) 2 sprays NASAL NOW ONE Stop: 07/18/22 04:15 Last Admin: 07/18/22 04:20 Dose: 2 sprays Documented By: DEANA Silver Nitrate/Potassium Nitrate (Silver Nitrate Stick) 1 each TOP NOW ONE Stop: 07/18/22 04:31 Vital Signs Vital signs: Vital Signs - 8 hr 07/18/22 03:54 Temperature 97.2 F L Pulse Rate 82 Respiratory Rate 18 Blood Pressure 124/79 Pulse Oximetry 98 Oxygen Delivery Method Room Air MDM - Epistaxis Lab Data Labs: Lab Results 07/18/22 Range/Units 04:30 SARS-CoV-2 (PCR) Negative (Negative) Influenza A (RT-PCR) Flu a positive H (NEGATIVE) Influenza B (RT-PCR) Flu b negative (NEGATIVE) RSV (PCR) Negative (Negative) Discharge Plan Departure Patient Disposition: Home Clinical Impression: Bleeding nose, Flu, Atypical pneumonia Instructions: DI for Influenza -- Adult, DI for Nosebleed Activity Restrictions/Additional Instructions: *You have been diagnosed with [ acute anterior epistaxis and Influenza, possible atypical pneumonia ] *What to do: * do not blow your nose, stick your finger in her nose, or disturb nose for the next 24 hr. If you must sneeze please sneeze out your mouth like we talked about *Follow up with your primary care provider or ENT doctor in 2-3 days, call for an appointment. Let them know you were seen in the Emergency Department and that we ask that you be seen in follow up *Return to ER if you should have any new, worsening or concerning symptoms * if you are bleeding starts again at home please place a portion of a cotton ball in your nostril and squirt some of the Afrin you were given in your nose. Apply the nose clamp and uses a watch or o'clock to time yourself for 15 min. At the end 15 min recheck for bleeding, if you continue to bleed please repeat the process for another 15 min. If at the end of 30 min you still have bleeding you should return to the emergency department Prescriptions: New benzonatate 200 mg capsule 200 mg PO BID PRN (Reason: cough) Qty: 20 0RF doxycycline hyclate 100 mg tablet 100 mg PO BID Qty: 20 0RF ondansetron 4 mg tablet,disintegrating 4 mg PO TID-QID PRN (Reason: nausea and vomiting) Qty: 10 0RF codeine-guaifenesin 10-100 mg/5 mL liquid 5 ml PO Q4-6H PRN (Reason: cough) Qty: 237 0RF No Action sertraline [Zoloft] 50 MG tablet 50 mg PO QDAY Qty: 0 Referrals: Jose Peña MD [Primary Care Provider] - Vishnu Lopez MD [Physician] -
--- NOTE | 2022-07-18 04:15 | PC.NURSE ---
at bedside for epistaxis procedure
[2022-07-18] MEDS: OXYMETAZOLINE NASAL SPRAY 15 ML 2 SPRAYS NASAL (04:20)
--- NOTE | 2022-07-18 04:29 | DI.RAD.S_ITS ---
PROCEDURE: XR CHEST 2V INDICATIONS: cough, fever chills TECHNIQUE: 2 views of the chest were acquired. COMPARISON: None. FINDINGS: Surgical changes and devices: None. Lungs and pleura: Lungs are clear. No pleural effusions or pneumothorax. Mediastinum: Mediastinal contours are normal. Heart size is normal. Bones and chest wall: No suspicious bony abnormalities. Soft tissues appear unremarkable. IMPRESSION: No acute process. Concordant with preliminary interpretation. Dictated by: Amna Rodriguez M.D. on 07/18/2022 at 7:17 Approved by: Amna Rodriguez M.D. on 07/18/2022 at 7:18
[2022-07-18] MEDS: SILVER NITRATE STICK 1 EACH TOP (04:35)
--- NOTE | 2022-07-18 04:44 | PC.NURSE ---
IN radiology at this time
--- NOTE | 2022-07-18 05:07 | PC.NURSE ---
Ambulatory to the bathroom - one person standby assist
--- NOTE | 2022-07-18 05:20 | PC.NURSE ---
MD at bedside to cauterize the bleed - family at bedside - pt tolerated well
--- NOTE | 2022-07-18 06:00 | PC.NURSE ---
Ambulatory to the bathroom with steady gait
[2022-07-18 06:18] LABS: COVID-19 CEPHEID 4-PLEX PCR Negative (Negative); Influenza A - CEPHEID Flu A POSITIVE (NEGATIVE); Influenza B - CEPHEID Flu B NEGATIVE (NEGATIVE); Respiratory Syncytial Virus Negative (Negative)
--- NOTE | 2022-07-18 06:23 | PC.NURSE ---
at [facility]
[2022-07-18 06:48] VITALS: BP 133/83; PULSE 86; RESP 18; O2SAT 96
[2022-07-18] MEDS: ONDANSETRON 4 MG ODT PREPACK 1 BOTTLE MISC (06:50)
== END 2022-07-18 06:49 | disposition home or self-care (01) ==
PROVIDERS: Emergency Provider Emergency Medicine; PCP Internal Medicine
DX: J11.1 Influenza due to unidentified influenza virus with other respiratory manifestations (principal); J18.9 Pneumonia, unspecified organism; R04.0 Epistaxis; Z20.822 Contact with and (suspected) exposure to COVID-19
CPT/HCPCS: 0241U; 30901; 71046; 99283; A9270

== ENCOUNTER → 2022-11-10 08:28 | Outpatient (CLI) | payer MEDICARE, OTHER, SELFPAY ==
[2022-11-10 09:03] LABS: Estimated Glomerular Filt Rate > 60 mL/min (>60)
--- NOTE | 2022-11-10 09:30 | DI.CT.S_ITS ---
PROCEDURE: CT ANGIO CHEST ABDOMEN PELVIS INDICATIONS: Aneurysm of the ascending aorta, without rupture TECHNIQUE: Precontrast 5 mm thick sections acquired from the lung apices to the iliac crests. After the administration of intravenous contrast, 2.5 mm thick sections again acquired from the lung apices to the iliac crests. Maximum intensity projection (MIP) oblique sagittal and coronal reformats were then acquired. For radiation dose reduction, the following was used: automated exposure control. COMPARISON: [facility], CT, CT ANGIO CHEST ABDOMEN PELVIS, 04/07/2022, 12:09. FINDINGS: Image quality: Excellent. AORTA and its attachments: Unchanged borderline aneurysmal dilatation of the ascending aorta, measuring 4.0 cm. There is no dissection or significant atherosclerotic change. Descending thoracic aorta is normal in caliber, measuring 2.4 cm. Classic three-vessel arch anatomy. Great vessel origins are widely patent. SMA, celiac, CHELSEY, and bilateral renal arteries are widely patent. Abdominal aorta is normal caliber, measuring 1.5 cm. Common iliac arteries, external iliac arteries, and common femoral arteries are unremarkable. CHEST: Lungs and pleura: No acute airspace opacities. Minimal bibasilar dependent change. No pleural effusions or pneumothorax. Central and peripheral airways are patent and normal in caliber. Mediastinum: Mild cardiomegaly with four-chamber enlargement, right greater than left. Moderate coronary artery calcifications. No pericardial effusion. No mediastinal or hilar adenopathy by size criteria. Central pulmonary arteries are normal in size. Esophagus is normal in caliber. No hiatal hernias. Bones and chest wall: No axillary adenopathy by size criteria. Thyroid gland is unremarkable No suspicious bony lesions. No vertebral body compression fractures. ABDOMEN: Vasculature: Celiac trunk and mesenteric arteries are patent. Renal arteries are also patent. Solid organs: Liver is normal in size and enhancement. Gallbladder is unremarkable, without calcified gallstones. . No intrahepatic biliary ductal dilatation. Again noted is a prominent extrahepatic duct, measuring 10 mm at the head of the pancreas. Pancreas enhances normally. There is a pancreatic divisum. There is mild dilatation of the pancreatic duct, unchanged. No obstructing pancreatic mass identified. Spleen is normal in size and enhancement. No adrenal nodules. Both kidneys are normal in size and enhancement, without hydronephrosis. Peritoneum and bowel: No free fluid or air. Bowel loops are normal in caliber and wall thickness. Nodes and vessels: No retroperitoneal or mesenteric adenopathy by size criteria. Inferior vena cava is normal in morphology. Miscellaneous: No ventral hernias. PELVIS: Genitourinary: Bladder wall thickness is normal. Miscellaneous: No inguinal hernias or adenopathy. No ventral hernias. Bones: No suspicious bony lesions. No vertebral body compression fractures. IMPRESSION: 1. Stable appearance of aorta. Borderline aneurysmal dilatation of the ascending aorta, measuring 4 cm. Otherwise unremarkable. 2. No evidence of acute process in the chest, abdomen, and pelvis. 3. Mild cardiomegaly, moderate coronary artery calcifications. 4. Stable mild dilatation of the extrahepatic duct and mild dilatation of the pancreatic duct. Dictated by: Trell Felix M.D. on 11/10/2022 at 12:30 Approved by: Trell Felix M.D. on 11/10/2022 at 12:39
== END ==
PROVIDERS: Radiology Diagnostic Radiology; PCP Physician Assistant; Referring Provider Nurse Practitioner Family; Visit Provider Nurse Practitioner Family
DX: I71.21 Aneurysm of the ascending aorta, without rupture (principal); I51.7 Cardiomegaly; I25.10 Atherosclerotic heart disease of native coronary artery without angina pectoris; K83.8 Other specified diseases of biliary tract; K86.89 Other specified diseases of pancreas
CPT/HCPCS: 36415; 71275; 74174; 82565

== ENCOUNTER → 2023-05-23 09:14 | Outpatient (CLI) | payer MEDICARE, OTHER, SELFPAY ==
--- NOTE | 2023-05-23 | DI.ECHO.S_ITS ---
[facility]---------+ [facility] +---------+ : : [address] : : : : [id number] : : : : Phone: [phone]+ Echocardiogram Report + + :Name: DAVID BONILLA Study Date: 05/23/2023 Height: 58 in : :[facility] ReadingLocation: Weight: 110 lb : : Gender: Female BSA: 1.4 m2 : :: 1950 Age: 73 yrs BP: 166/104 mmHg: :Reason For Study: Aneurysm of the Ascending Aorta : :Ordering Physician: DAWSON, : :ALFREDO Performed By: Irlanda Palomo : :Referring: ALFREDO OSMAN : + + Interpretation Summary Normal left ventricle size with ejection fraction 55-60%. Mild aortic valve sclerosis. Mild mitral regurgitation. Mild tricuspid regurgitation. The ascending aorta is mildly enlarged (4.0 cm). Procedure: A two-dimensional transthoracic echocardiogram with color flow and Doppler was performed. The study quality was technically adequate. There is no prior echocardiogram noted for this patient. The patient was in normal sinus rhythm during the exam. Left Ventricle: The left ventricle is normal in size and wall thickness. The ejection fraction is estimated to be 55-60%. There are no focal wall motion abnormalities. Right Ventricle: The right ventricle is normal in size and function. Atria: The left atrial size is normal. Right atrial size is normal. There is no Doppler evidence for an interatrial shunt. Mitral Valve: The mitral valve leaflets appear mildly thickened, but open well. There is no mitral valve stenosis. There is mild mitral regurgitation. Aortic Valve: The aortic valve is trileaflet. The aortic valve opens well. There is mild aortic valve sclerosis. There is no aortic valve stenosis. There is trace aortic regurgitation. Tricuspid Valve: The tricuspid valve is normal. There is no tricuspid stenosis. There is mild tricuspid regurgitation. The right ventricular systolic pressure is estimated to be at least 27 mmHg based on an estimated right atrial pressure of 8 mm Hg. Pulmonic Valve: The pulmonic valve leaflets are thin and pliable; valve motion is normal. There is no pulmonic valvular stenosis. There is trace pulmonic regurgitation. Great Vessels: The aortic root is normal size. The ascending aorta is mildly enlarged. The pulmonary artery is normal size. The IVC is dilated (diameter is greater than 2.1 cm) yet it collapses greater than 50% with a sniff. This suggests a right atrial pressure of 8 mm Hg. Pericardium/ Pleura There is no pericardial effusion. MMode/2D Measurements & Calculations LVIDd: 3.3 cm LVOT diam: 1.8 cm LVIDs: 2.1 cm Ao root diam: 3.1 cm FS: 36.4 % asc Aorta Diam: 4.0 cm EPSS: 0.90 cm IVSd: 0.80 cm LVPWd: 0.70 cm LV flanagan. diameter/BSA (cm/m^2): 2.3 LV sys. diameter/BSA (cm/m^2): 1.5 LA A2 area: 10.8 cm2 RA long axis: 4.3 cm LA A4 area: 9.0 cm2 RA area: 12.0 cm2 LA length (vol): 4.5 cm RA vol: 29.0 ml LA vol: 18.4 ml RA : 20.5 ml/m2 LA vol index: 13.0 ml/m2 RVD1 (basal): 4.0 cm LVLs ap4: 5.3 cm LVLd ap2: 6.1 cm TAPSE_phl: 1.8 cm LVLs ap2: 5.6 cm Doppler Measurements & Calculations Ao V2 max: 119.7 cm/sec LVOT Max Armando: 90.7 cm/sec Ao V2 mean: 81.7 cm/sec LV V1 max P.3 mmHg Ao max P.0 mmHg LV V1 VTI: 19.5 cm Ao mean P.0 mmHg MAYTE(I,D): 1.7 cm2 Ao V2 VTI: 28.4 cm MAYTE(V,D): 1.9 cm2 sev ratio: 0.68 MAYTE indexed to BSA (cm^2/m^2): 1.2 MV E max armando: 58.3 cm/sec TR max armando: 219.0 cm/sec MV A max armando: 89.4 cm/sec TR max P.2 mmHg MV E/A: 0.65 PA V2 max: 89.6 cm/sec Med Peak E' Armando: 5.0 cm/sec PA V2 mean: 61.8 cm/sec E/E' med: 11.6 PA mean P.0 mmHg Lat Peak E' Armando: 9.3 cm/sec PA pr(Accel): 44.4 mmHg E/E' lat: 6.3 E/e' average: 9.0 MV dec time: 0.27 sec SV(LVOT): 49.5 ml AV VR_phl: 0.76 MAYTE(VTI)/BSA_phl: 1.2 Electronically signed by: Carlos Marin on Reading Physician:05/23/2023 12:01 PM
== END ==
PROVIDERS: PCP Physician Assistant; Referring Provider Nurse Practitioner Family; Visit Provider Nurse Practitioner Family
DX: I71.21 Aneurysm of the ascending aorta, without rupture (principal); I70.0 Atherosclerosis of aorta; I34.0 Nonrheumatic mitral (valve) insufficiency; I07.1 Rheumatic tricuspid insufficiency; I51.7 Cardiomegaly
CPT/HCPCS: 93306

== ENCOUNTER → 2023-08-09 12:53 | Outpatient (CLI) | payer MEDICARE, OTHER, SELFPAY ==
--- NOTE | 2023-08-09 | DI.MG.S_ITS ---
BILATERAL DIGITAL SCREENING MAMMOGRAM 3D/2D WITH CAD: 08/09/2023 CLINICAL: Routine screening. Comparison is made to exams dated: 06/11/2022 mammogram, 04/04/2021 mammogram, 04/10/2020 mammogram, and 03/18/2020 mammogram - [facility]. Both breasts are heterogeneously dense, which may obscure small masses (category c / 51-75% glandular tissue). Current study was also evaluated with a Computer Aided Detection (CAD) system. There is a biopsy clip in the right breast. No significant masses, calcifications, or other findings are seen in either breast. There has been no significant interval change. IMPRESSION: NEGATIVE There is no mammographic evidence of malignancy. A 1 year screening mammogram is recommended. Based on the Tyrer Cuzick model (a risk assessment model) the patient's lifetime risk is 4.5% and her 10 year risk is 4.5%. According to the ACR, ACS, and NCCN guidelines, an annual breast MRI exam along with mammogram is recommended if the patient's lifetime risk is 20% or greater. This exam was interpreted at Station ID: [id number]. NOTE: For mammograms, a report in lay terms will be sent to the patient. Approximately 15% of breast malignancies will not be visualized mammographically. In the management of a palpable breast mass, a negative mammogram must not discourage biopsy of a clinically suspicious lesion. Electronically Signed By: Paul colbert/deejay:08/09/2023 16:28:26 letter sent: Normal Exam ACR BI-RADS Category 1: Negative 3341F
== END ==
PROVIDERS: PCP Physician Assistant; Referring Provider Physician Assistant; Visit Provider Physician Assistant
DX: Z12.31 Encounter for screening mammogram for malignant neoplasm of breast (principal)
CPT/HCPCS: 77063; 77067

== ENCOUNTER → 2023-11-18 09:08 | Outpatient (CLI) | payer MEDICARE, OTHER, SELFPAY ==
[2023-11-18 09:33] LABS: Estimated Glomerular Filt Rate > 60 mL/min (>60)
== END ==
LOC: LAB 09:09
PROVIDERS: PCP Physician Assistant; Referring Provider Psychologist; Visit Provider Psychologist
DX: I10 Essential (primary) hypertension (principal)
CPT/HCPCS: 36415; 82565

== ENCOUNTER → 2023-11-29 09:38 | Outpatient (CLI) | payer MEDICARE, OTHER, SELFPAY ==
--- NOTE | 2023-11-29 09:41 | DI.CT.S_ITS ---
PROCEDURE: CT ANGIO CHEST INDICATIONS: ASCENDING AORTIC ANEURYSM TECHNIQUE: After the administration of intravenous contrast, 2.5 mm thick sections acquired from the lung apices to the posterior lung bases. Maximum intensity projection (MIP) oblique sagittal reformats were then acquired parallel to the aortic arch. For radiation dose reduction, the following was used: automated exposure control. COMPARISON: [facility], CT, CT ANGIO CHEST ABDOMEN PELVIS, 11/10/2022, 9:15. FINDINGS: Image quality: Excellent. Aorta: No change in mild fusiform aneurysmal dilatation of the ascending thoracic aorta. Lower Neck: No enlarged lymph nodes. Thyroid: No thyroid nodules which require sonographic follow up, per consensus guidelines. Axillae: No enlarged lymph nodes. Chest Wall: Unremarkable. Bones: Unremarkable. Lungs and Pleura: No pneumothorax or pleural effusions. No evidence of pneumonia or edema. There is a new region of ground-glass density within the right upper lobe posteriorly measuring roughly 7 mm (series 5, image 66). Mild bibasilar predominant reticulonodular pulmonary opacity. Heart: Heart size is normal. No pericardial effusion. Calcification of the coronary vasculature. Thoracic Vessels: Pulmonary arteries demonstrate normal size. Mediastinum and Rhoda: No enlarged lymph nodes. Esophagus: No wall thickening. No hiatal hernia. Upper Abdomen: Visualized upper abdomen solid organs and bowel loops appear normal. IMPRESSION: 1. Stable mild fusiform dilatation of the ascending thoracic aorta. 2. Coronary artery disease. 3. New right upper lobe pulmonary nodule. Follow-up is recommended as below. Fleischner Society criteria for SUB-SOLID lung nodule followup. Solitary pure ground-glass nodules<6 mm (ground glass or part solid)No followup needed. 6 mm or larger (ground glass)CT at 6-12 months to confirm persistence, then CT every 2 years until 5 years.6 mm or larger (part solid)CT at 3-6 months to confirm persistence, then annual CT until 5 years if unchanged and solid component remains <6 mm. Multiple sub-solid nodules<6 mmCT at 3-6 months, then CT consider at 2 & 4 years for high risk patients. [address] at 3-6 months. Subsequent management based on most suspicious lesions. Recommendations do not apply to lung cancer screening, patients with immunosuppression, or patients with known primary cancer. Dictated by: Amna Rodriguez M.D. on 11/29/2023 at 11:16 Approved by: Amna Rodriguez M.D. on 11/29/2023 at 11:25
== END ==
PROVIDERS: PCP Physician Assistant; Referring Provider Nurse Practitioner Family; Visit Provider Nurse Practitioner Family
DX: I71.21 Aneurysm of the ascending aorta, without rupture (principal); I25.10 Atherosclerotic heart disease of native coronary artery without angina pectoris; R91.1 Solitary pulmonary nodule
CPT/HCPCS: 71275; Q9967

== ENCOUNTER → 2024-10-02 08:22 | Outpatient (CLI) | payer MEDICARE, OTHER, SELFPAY ==
--- NOTE | 2024-10-02 08:23 | DI.MG.S_ITS ---
BILATERAL DIGITAL SCREENING MAMMOGRAM 3D/2D WITH CAD: 10/02/2024 CLINICAL: Routine screening. Comparison is made to exams dated: 08/09/2023 mammogram, 06/11/2022 mammogram, 04/04/2021 mammogram, and 03/18/2020 mammogram - [facility]. The breasts are heterogeneously dense, which may obscure small masses (category c / 51-75% glandular tissue). Current study was also evaluated with a Computer Aided Detection (CAD) system. There are benign vascular calcifications in both breasts. There also is a biopsy clip in the right breast. No significant masses, calcifications, or other findings are seen in either breast. There has been no significant interval change. IMPRESSION: BENIGN There is no mammographic evidence of malignancy. A 1 year screening mammogram is recommended. Based on the Tyrer Cuzick model (a risk assessment model) the patient's lifetime risk is 4.1% and her 10 year risk is 0.0%. According to the ACR, ACS, and NCCN guidelines, an annual breast MRI exam along with mammogram is recommended if the patient's lifetime risk is 20% or greater. This exam was interpreted at Station ID: [id number]. NOTE: For mammograms, a report in lay terms will be sent to the patient. Approximately 15% of breast malignancies will not be visualized mammographically. In the management of a palpable breast mass, a negative mammogram must not discourage biopsy of a clinically suspicious lesion. Electronically Signed By: Antwon [email or web address]:10/02/2024 14:00:45 letter sent: Normal Exam ACR BI-RADS Category 2: Benign
== END ==
PROVIDERS: PCP Physician Assistant; Referring Provider Physician Assistant; Visit Provider Physician Assistant
DX: Z12.31 Encounter for screening mammogram for malignant neoplasm of breast (principal); R92.333 Mammographic heterogeneous density, bilateral breasts
CPT/HCPCS: 77063; 77067